=== PATIENT | female | born 2005 | race Caucasian/White ===

== ENCOUNTER 2024-04-26 11:14 | Emergency (ER) | payer BC ==
[~2024-04-26] VITALS: Ht 165.1 cm; Wt 52.3 kg
[2024-04-26] MEDS ORDERED: NS 1,000 ML IV ONE ×2 (12:15→14:15)
[2024-04-26 13:34] LABS: ALBUMIN 5.3 g/dL (3.5-5.0); BILIRUBIN,TOTAL 0.6 mg/dL (0.2-1.2); CALCIUM 10.8 mg/dL (8.4-10.2); CREATININE, serum 1.5 mg/dL (0.57-1.11); POTASSIUM 5.5 mEq/L (3.5-4.5); TOTAL PROTEIN 9.1 g/dl (6.2-8.1)
[2024-04-26 13:36] LABS: URINE APPEARANCE CLOUDY (CLEAR/HAZY); URINE BLOOD TRACE (NEGATIVE); URINE COLOR YELLOW (YELLOW); URINE GLUCOSE NEGATIVE (NEGATIVE); URINE KETONE NEGATIVE (NEGATIVE); URINE NITRATE NEGATIVE (NEGATIVE); URINE PROTEIN(semi-quant) NEGATIVE (NEGATIVE)
[2024-04-26 13:41] LABS: COLLECTION METHOD CLEAN CATCH
[2024-04-26 14:23] LABS: HEMATOCRIT 40.2 % (35.0-45.0); HEMOGLOBIN 13.5 g/dl (12.0-15.0); MEAN CELL VOLUME 94 fl (80.0-95.0); MEAN CORPUSCULAR HEMOGLOBIN 32 pg (26-32); MEAN CORPUSCULAR HGB CONC 34 g/dl (33.0-37.0); MEAN PLATELET VOLUME 9.2 fl (7.4-10.4); PLATELET COUNT 235 K/mm3 (130-400); RED BLOOD COUNT 4.26 M/mm3 (4.10-5.30); REDCELL DISTRIBUTION WIDTH-CV 12.5 % (11.5-14.5)
[2024-04-26] MEDS ORDERED: Iohexol 300 - 100 ML VIAL IV ONE (14:28)
[2024-04-26] MEDS ORDERED: NS 100 ML IV SCH (14:29)
[2024-04-26 15:09] LABS: BAND 1 % (0-10); LYMPHOCYTE 7 % (20.0-51.0); NEUTROPHILS 89 % (42.0-75.2); PLATELET ESTIMATE NORMAL (NORMAL)
[2024-04-26] MEDS ORDERED: Ketorolac 15 MG/ML VIAL IV ONE (15:30)
[2024-04-26] MEDS ORDERED: Ondansetron 4 MG/2 ML VIAL IV ONE (15:30)
[2024-04-26] MEDS ORDERED: cefTRIAXone 1 G in Water For Injection,Sterile 10 ML IV ONE (15:45)
[2024-04-26] MEDS ORDERED: CEPHALEXIN500 M1 PO (16:13)
[2024-04-26] MEDS ORDERED: FLOMAX 0.40.4 MG/CAP PO (16:13)
[2024-04-26] MEDS ORDERED: ZOFRAN 4MG T4 MG/TAB PO (16:13)
[2024-04-26] MEDS ORDERED: NORCO 325 MG-51 TAB PO (16:13)
[2024-04-26 16:29] VITALS: BP 115/96; PULSE 55; TEMP 97.9
== END 2024-04-26 16:30 | disposition home or self-care (01) ==
LOC: COL.ER 11:14
PROVIDERS: Family Medicine; Physician Assistant
DX: N13.2 Hydronephrosis with renal and ureteral calculous obstruction (principal)
CPT/HCPCS: J0696; J1885; J2405; J7030; Q9967